=== PATIENT | male | born 1960 | race Caucasian/White ===

== ENCOUNTER 2017-04-29 07:35 | Emergency (ER) | payer OTHER ==
--- NOTE | 2017-04-29 07:42 | ED Physician Documentation ---
Skin Rash - HISTORIAN Historian: patient - HPI Stated Complaint: rash Chief Complaint: Allergic Reaction Additional Information: Rash since Sunday on abdomen and arms along with legs Onset: days ago (5) Timing: worse Duration: worse Location: trunk, RUE, LUE, RLE, LLE Identified Cause?: Yes (dry wall at work ) Where: work Context: Medication Exposure: none Context: Food Exposure: none Context: Other Exposure: other (he feels from dry wall at work ) - ROS CONST: none CVS/RESP: denies: chest pain, shortness of breath EYES/ENT: denies: eye redness, eye itching MS/SKIN/LYMPH: rash NEURO/PSYCH: denies: headache, dizziness - PAST HX Past History: none Other History: none Surgeries/Procedures: Yes (Left knee replacement ) Immunizations: referred to PCP Allergies/Adverse Reactions: Allergies Allergy/AdvReac Type Severity Reaction Status Date / Time codeine Allergy Verified 04/29/17 07:47 Home Medications: Ambulatory Orders Medication Instructions Recorded Loratadine [Claritin] 10 mg PO D #14 tablet 04/29/17 Ranitidine HCl [Zantac] 150 mg PO BID #28 tablet 04/29/17 predniSONE [Deltasone] 10 mg PO NOW #38 tablet 04/29/17 - SOCIAL HX Smoking History: non-smoker Alcohol Use: none Drug Use: none - FAMILY HX Family History: none - VITAL SIGNS Vital Signs: Vital Signs Temp Pulse Resp BP Pulse Ox 98.2 F 78 19 124/92 92 04/29/17 07:47 04/29/17 07:47 04/29/17 07:47 04/29/17 07:47 04/29/17 07:47 - REVIEWED ASSESSMENTS Nursing Assessment Reviewed: Yes Vitals Reviewed: Yes Progress - Progress Progress: Mild improvement on lateral sides of abdomen States itching has improved ED Results Lab/Radiology - Orders Orders: ED Orders Category Date Time Status Place IV Lock 1T Care 04/29/17 07:51 Active Famotidine [Pepcid] Med 04/29/17 07:52 Discontinued 20 mg PO NOW ONE diphenhydrAMINE HCL [Benadryl] Med 04/29/17 07:52 Discontinued 50 mg IVP NOW ONE methylPREDNISolone SOD SUCC [Solu-MEDROL] Med 04/29/17 07:58 Discontinued 125 mg .ROUTE .STK-MED ONE methylPREDNISolone SOD SUCC [Solu-MEDROL] 125 mg Med 04/29/17 07:51 Discontinued 0.9 % Sodium Chloride [Sodium Chloride] 100 ml IV NOW Skin Rash Physical Exam - EXAM General Appearance: no acute distress, alert Skin: warm,dry, other (wheal type rash on entire chest, red raised wheals on bilateral arms and upper legs - back ) Character: symmetric Symptoms: warmth Extremities: non-tender Respiratory: no resp distress CVS: reg. rate & rhythm, heart sounds nml Abdomen: non-tender, no organomegaly, nml bowel sounds Neuro/Psych: oriented x3, CN's nml as tested Discharge Clincal Impression: Rash Prescriptions: Loratadine [Claritin] 10 mg PO D #14 tablet predniSONE [Deltasone] 10 mg PO NOW #38 tablet Ranitidine HCl [Zantac] 150 mg PO BID #28 tablet Referrals: Primary Doctor,No [Primary Care Provider] - 2 Days Condition: Stable Disposition: 01 HOME, SELF-CARE Decision to Admit: NO Date of Decison to Admit: 04/29/17 Decision Time: 08:33
[2017-04-29] MEDS: FAMOTIDINE 20 MG TABLET PO ONE (08:02)
[2017-04-29] MEDS: methylPREDNISolone SOD SUCC 125 MG/2 ML VIAL ONE (08:02)
[2017-04-29] MEDS: diphenhydrAMINE HCL 50 MG/ML VIAL IVP ONE (08:08)
[2017-04-29 08:41] VITALS: BP 122/81
== END 2017-04-29 08:40 | disposition home or self-care (01) ==
LOC: ED 07:35
DX: R21 Rash and other nonspecific skin eruption (principal)
CPT/HCPCS: 99283; J1200; J2930; S1016